=== PATIENT | male | born 1975 | race Caucasian/White ===

== ENCOUNTER → 2020-11-12 09:44 | Outpatient (BNVA) | payer MEDICAID, SELFPAY | PROVIDERS: Visit Provider Nurse Practitioner Family | DX: S92.002A Unspecified fracture of left calcaneus, initial encounter for closed fracture (principal); X58.XXXA Exposure to other specified factors, initial encounter | CPT/HCPCS: 73610 ==

== ENCOUNTER → 2021-12-09 10:13 | Outpatient (BNVA) | payer MEDICAID, SELFPAY | PROVIDERS: Visit Provider Emergency Medicine | DX: S89.91XA Unspecified injury of right lower leg, initial encounter (principal); K04.7 Periapical abscess without sinus; X58.XXXA Exposure to other specified factors, initial encounter | CPT/HCPCS: 73562 ==

== ENCOUNTER 2022-04-18 22:47 | Emergency (ER) | payer MEDICAID, SELFPAY ==
[2022-04-18 22:49] VITALS: BP 136/83; PULSE 84; RESP 18; TEMP 36.9; O2SAT 98; BMI 41.9
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
[2022-04-18 23:19] LABS: Alanine Aminotransferase 37 U/L (0-41); Albumin Level 4.2 g/dL (3.5-5.2); Alcohol Level 167 mg/dL (0-10); Alkaline Phosphatase 94 U/L (40-130); Anion Gap 16.7 (5-19); Aspartate Amino Transferase 34 U/L (0-40); Blood Urea Nitrogen 10 mg/dL (6-20); Calcium 9.2 mg/dL (8.5-10.5); Carbon Dioxide 24 mmol/L (22-29); Chloride 102 mmol/L (98-107); Globulin 3.2 g/dL (1.3-4.6); Glucose 136 mg/dL (65-115); Osmolality Calculated 289 mOsm/kg (285-295); Potassium 3.7 mmol/L (3.5-5.1); Sodium 139 mmol/L (136-145); Total Bilirubin 0.2 mg/dL (0.15-1.2); Total Protein 7.4 g/dL (6.6-8.7)
[2022-04-18 23:30] LABS: Basophils % 0.2 %; Eosinophils % 0.2 %; Hematocrit 49.9 % (42.0-52.0); Hemoglobin 16.8 g/dL (11.7-16.6); Lymphocytes # 1.6 10^3/uL (0.8-4.8); Lymphocytes % 9.3 %; Mean Corpuscular HGB Conc 33.7 g/dL (30.0-36.0); Mean Corpuscular Hemoglobin 31.5 pg (28.0-34.0); Mean Corpuscular Volume 93.6 fl (80-94); Monocytes # 1.2 10^3/uL (0.2-0.9); Monocytes % 7.4 %; Neutrophils # 13.75 10^3/uL (1.8-7.7); Neutrophils % 82.2 %; Nucleated Red Blood Cells % 0 %; Platelet Count 280 10^3/cmm (130-400); Red Blood Count 5.33 10^6/uL (4.1-5.3); Red Cell Distribution Width 12.1 % (12.1-15.1); White Blood Count 16.7 10^3/uL (4.0-10.0)
[2022-04-18 23:48] VITALS: BP 154/88; PULSE 94; RESP 19; O2SAT 97
[2022-04-19 00:14] VITALS: BP 119/71; PULSE 88; RESP 18; O2SAT 93
[2022-04-19 00:29] VITALS: BP 135/69; PULSE 87; RESP 20; O2SAT 94
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
--- NOTE | 2022-04-19 01:06 | PC.NURSE ---
Talked with Argenis on the phone, she states she will try to arrange someone to come and give pt a ride home.
[2022-04-19 02:00] VITALS: BP 112/71; PULSE 96; RESP 18; O2SAT 95
--- NOTE | 2022-04-19 02:50 | PC.NURSE ---
Pt resting in bed with eyes closed, respirations even and nonlabored.
== END 2022-04-19 06:39 | disposition home or self-care (01) ==
PROVIDERS: Emergency Provider Emergency Medicine
DX: S02.32XA Fracture of orbital floor, left side, initial encounter for closed fracture (principal); F17.210 Nicotine dependence, cigarettes, uncomplicated; Y04.2XXA Assault by strike against or bumped into by another person, initial encounter
CPT/HCPCS: 70450; 70486; 71045; 71260; 72125; 74177; 80053; 80307; 85025; 99285; Q9967